=== PATIENT | female | born 1985 | race African-American/Black ===

== ENCOUNTER 2016-10-25 05:10 | Day surgery (SDC) | payer OTHER ==
[2016-10-23 11:34] VITALS: BMI 33.0
[~2016-10-25 05:10] MED LIST: ceFAZolin SODIUM 1 GM VIAL IVPB ONE
[2016-10-25] MEDS ORDERED: PROPOFOL 20 ML ONE ×3 (07:32)
[2016-10-25] MEDS ORDERED: MIDAZOLAM HCL 2 MG/2 ML SINGLE DOSE VIAL ONE (07:32)
[2016-10-25] MEDS ORDERED: ePHEDrine SULFATE 50 MG/1 ML AMPULE ONE (07:32)
[2016-10-25] MEDS ORDERED: SUCCINYLCHOLINE CHLORIDE 200 MG/10 ML VIAL ONE (07:32)
[2016-10-25] MEDS ORDERED: ROCURONIUM BROMIDE 50 MG/5 ML VIAL ONE (07:35)
--- NOTE | 2016-10-25 07:47 | HP ---
Past Medical History - Primary Care Physician PCP:: Nirav Weir - Admission Chief Complaint: 14 weeks, incomptent cervix History of Present Illness: 31 yo f g 4 p0020 with 2 previous second trimester spont admitted for cervical cerclage, rba discussed History Source: Patient Limitations to Obtaining History: No Limitations - Past Medical History Pulmonary: Yes: Pulmonary Embolus (on lovnox) ...: 3 ...Para: 0 ...Spon : 2 - Past Surgical History Hx Myomectomy: No Hx Transabdominal Cerclage: No - Smoking History Smoking history: Former smoker Have you smoked in the past 12 months: No Aproximately how many cigarettes per day: 0 If you are a former smoker, when did you quit?: stopped at age 21 - Alcohol/Substance Use Hx Alcohol Use: No History of Substance Use: reports: None - Social History Usual Living Arrangement: Yes: With Spouse 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 History of Recent Travel: No Home Medications - Allergies Allergies/Adverse Reactions: Allergies Allergy/AdvReac Type Severity Reaction Status Date / Time No Known Drug Allergies Allergy Severe Verified 10/25/16 07:17 Shellfish Allergy Hives Verified 10/25/16 07:17 - Home Medications Home Medications: Ambulatory Orders Enoxaparin [Lovenox -] 60 mg SQ DAILY 10/23/16 Vit/Iron Fumarate/FA [ Tablet] 1 each PO DAILY 10/23/16 Family Disease History - Family Disease History Family Disease History: Other: Father (unknown) Review of Systems - Review of Systems Constitutional: reports: No Symptoms Eyes: reports: No Symptoms HENT: reports: No Symptoms Neck: reports: No Symptoms Cardiovascular: reports: No Symptoms Respiratory: reports: No Symptoms Gastrointestinal: reports: No Symptoms Genitourinary: reports: No Symptoms Breasts: reports: No Symptoms Reported Musculoskeletal: reports: No Symptoms Integumentary: reports: No Symptoms Neurological: reports: No Symptoms Endocrine: reports: No Symptoms Hematology/Lymphatic: reports: No Symptoms Psychiatric: reports: No Symptoms 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 Vital Signs: Vital Signs Temperature 97.4 F L 10/25/16 07:16 Pulse Rate 73 10/25/16 07:16 Respiratory Rate 20 10/25/16 07:16 Blood Pressure 127/67 10/25/16 07:16 O2 Sat by Pulse Oximetry (%) 100 10/25/16 07:16 Constitutional: Yes: Well Nourished, No Distress, Calm Eyes: Yes: WNL, Conjunctiva Clear, EOM Intact HENT: Yes: WNL, Atraumatic, Normocephalic Neck: Yes: WNL, Supple, Trachea Midline Cardiovascular: Yes: WNL, Regular Rate and Rhythm Respiratory: Yes: WNL, Regular, CTA Bilaterally Gastrointestinal: Yes: WNL ...Rectal Exam: Yes: WNL Renal/: Yes: WNL Uterus: Yes: Enlarged (14 weeks) Breast(s): Yes: WNL Musculoskeletal: Yes: WNL Extremities: Yes: WNL Edema: No Integumentary: Yes: WNL Neurological: Yes: WNL, Alert, Oriented ...Motor Strength: WNL Psychiatric: Yes: WNL, Alert, Oriented Problem List - Problem (1) with 14 completed weeks gestation Code(s): Z3A.14 - 14 WEEKS GESTATION OF (2) Incompetent cervix Code(s): N88.3 - INCOMPETENCE OF CERVIX UTERI Assessment/Plan cercleage, rba discussed
[2016-10-25] MEDS ORDERED: ONDANSETRON 4 MG/2 ML VIAL IVPB PRN (08:54)
[2016-10-25] MEDS ORDERED: oxyCODONE HCL 5 MG TABLET PO PRN (08:54)
[2016-10-25] MEDS ORDERED: ELECTROLYTE-148 SOLN 1,000 ML IV SCH (09:00)
[2016-10-25] MEDS ORDERED: ACETAMINOPHEN 325 MG TABLET (FP) PO PRN (09:08)
[2016-10-25] MEDS ORDERED: LACTATED RINGERS SOLUTION 1,000 ML IV SCH (09:15)
[2016-10-25] MEDS ORDERED: ENOXAPARIN NA (PORCINE) 60 MG/0.6 ML DISP.SYRIN SQ SCH (10:00)
[2016-10-25] MEDS ORDERED: PRENATAL VITAMINS W/ FOLIC ACID TABLET (FP) PO SCH (10:00)
[2016-10-25 10:06] VITALS: TEMP 98.3
[2016-10-25 10:23] VITALS: PULSE 76
[2016-10-25 12:02] VITALS: BP 97/58
--- NOTE | 2016-12-25 07:03 | OP ---
DATE OF OPERATION: 10/25/2016 PREOPERATIVE DIAGNOSIS: 14 weeks, incompetent cervix. POSTOPERATIVE DIAGNOSIS: 14 weeks, incompetent cervix. PROCEDURE: Cervical cerclage. SURGEON: Nirav Weir MD ESTIMATED BLOOD LOSS: Minimal. DESCRIPTION OF PROCEDURE: The patient was taken to the operating room, and under adequate anesthesia, examination of external genitalia was normal. Vagina was normal, no lesion or discharge. Cervix was closed, and no membrane was seen. Then, the cervix was grasped with a 2-ring forceps, and then, cerclage was placed at 12, 9, 6, and 3 o'clock and then tied posteriorly, and no active bleeding was seen. Visualization of cerclage appeared to be adequate cervical length, and no other abnormalities were seen. Patient tolerated the procedure well, left the OR in good condition. Yaneth [id number]
== END 2016-10-25 11:30 | disposition home or self-care (01) ==
LOC: JASU-SURG 05:10
PROVIDERS: ATTEND Obstetrics & Gynecology
PROC: 0UVC7ZZ Restriction of Cervix, Via Natural or Artificial Opening (ICD-10-PCS; principal; 2016-10-25 08:00)
DX: O34.32 Maternal care for cervical incompetence, second trimester (principal)
CPT/HCPCS: 94760

== ENCOUNTER 2017-04-14 06:12 | Inpatient (IN) | payer OTHER ==
[2017-04-14 07:17] VITALS: BMI 36.5
[2017-04-14] MEDS ORDERED: AMPICILLIN - 2 GM in SODIUM CHLORIDE 100 ML IVPB ONE (07:30)
[2017-04-14] MEDS ORDERED: DEXTROSE 5%-LACTATED RINGERS 1,000 ML IV SCH (07:30)
[2017-04-14 08:09] LABS: BASOPHIL 0.8 % (0-2.0); EOSINOPHIL 1.7 % (0-4.5); MCH 26.2 pg (25.7-33.7); MCHC 32.9 g/dl (32.0-36.0); MEAN CELL VOLUME 79.8 fl (80-96); MEAN PLT VOLUME 9.1 fl (7.5-11.1); NEUTROPHILS 58.1 % (42.8-82.8); PLATELET COUNT 157 K/MM3 (134-434); RDW 16.3 % (11.6-15.6); WHITE BLOOD COUNT 5.3 K/mm3 (4.0-10.0)
[2017-04-14 08:21] LABS: INR 1.04 (0.82-1.09); PROTHROMBIN TIME (PATIENT) 11.5 SEC (9.98-11.88)
[2017-04-14 08:24] LABS: ACTIVATED PTT 26.2 SECONDS (26.9-34.4)
[2017-04-14 08:44] LABS: ANION GAP 12 (8-16); CO2 22 mmol/L (21-32); CREATININE 0.7 mg/dL (0.55-1.02); GLUCOSE,RANDOM 95 mg/dL (74-106)
[2017-04-14 09:23] LABS: HIV 1 & 2 AB NEGATIVE; HIV 1 AGp24 NEGATIVE
--- NOTE | 2017-04-14 09:34 | HP ---
Past Medical History - Primary Care Physician PCP:: Nriav Weir - Admission Chief Complaint: 31yo P 1301 @ 38.5 with LOF since 3am, + FM, occasional ctx, no VB History of Present Illness: 1. H/o x3 2nd trimester losses - s/p Cerclage 2. 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 GBS + for Ampicillin now 4. Sickle cell trait, tested negative History Source: Patient Limitations to Obtaining History: No Limitations - Past Medical History Pulmonary: Yes: Pulmonary Embolus (on lovnox), Other (DVT) Reproductive: Yes: Other (3 Spontaneous mid trimester losses) ...: 5 ...Para: 1 ...Term: 1 ...: 0 ...Spon : 3 ...Induced : 0 ...Multiple Gestation: 0 ...LMP: 07/18/16 ... Weeks Gestation by Dates: 38.5 ...EDC by Dates: 04/23/17 Heme/Onc: Yes: Other (Sicle cell trait). 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 Travel: No Home Medications - Allergies Allergies/Adverse Reactions: Allergies Allergy/AdvReac Type Severity Reaction Status Date / Time No Known Drug Allergies Allergy Severe Verified 04/14/17 07:00 Shellfish Allergy Hives Verified 04/14/17 07:00 - Home Medications Home Medications: Ambulatory Orders Vit/Iron Fumarate/FA [ Tablet] 1 each PO DAILY 10/23/16 Heparin Sod,Porcine/0.9 % NaCl [Heparin 10,000 Unit/1,000Ml-Ns] 10,000 unit SQ BID 04/14/17 Family Disease History - Family Disease History Family Disease History: Other: Father (unknown) Review of Systems - Review of Systems Constitutional: reports: No Symptoms Eyes: reports: No Symptoms HENT: reports: No Symptoms Neck: reports: No Symptoms Cardiovascular: reports: No Symptoms Respiratory: reports: No Symptoms Gastrointestinal: reports: No Symptoms Genitourinary: reports: No Symptoms Breasts: reports: No Symptoms Reported Musculoskeletal: reports: No Symptoms Integumentary: reports: No Symptoms Neurological: reports: No Symptoms Endocrine: reports: No Symptoms Hematology/Lymphatic: reports: No Symptoms Psychiatric: reports: No Symptoms Pain Intensity: 0 Physical Exam - Maternity Vital Signs: Vital Signs Temperature 98.1 F 04/14/17 08:00 Pulse Rate 70 04/14/17 09:00 Respiratory Rate 18 04/14/17 09:00 Blood Pressure 115/62 04/14/17 09:00 O2 Sat by Pulse Oximetry (%) Constitutional: Yes: Well Nourished HENT: Yes: WNL Neck: Yes: WNL Cardiovascular: Yes: WNL Lungs: Clear to auscultation Breast(s): Yes: WNL - Abdominal Exam/OB Fundal Height: 38 Number of Fetuses: Single Presentation: Vertex Contractions: Yes Regularity: Irregular Intensity: Mild Monitor Mode: External Heart Rate (range): 140 Heart Rate Location: Midline Category: I Accelerations: Uniform Decelerations: None - Vaginal Exam/OB Vaginal Bleediing: No Dilatation (cm): 1-2 Effacement (%): 90 Amniotic Membrane Status: Ruptured (Palpable cerlage string in the cervix) Nitrazine Test: Positive Amniotic Fluid: Yes: Clear Presentation: Vertex/Position Station: -3 - Physical Exam Musculoskeletal: Yes: WNL Extremities: Yes: WNL Integumentary: Yes: WNL ...Motor Strength: WNL Psychiatric: Yes: WNL - Labs Lab Results: CBC, BMP 04/14/17 07:50 04/14/17 07:50 Assessment/Plan 31 yo P1 @ 38.5 wks with PROM, currently not in labor Admit to L&D Send labs, start IVF Desires pain management for cerclage removal Case d/w anesthesia, will be 14hr post last dose of Heparin @ 12pm Will obtain Epidural, than remove cerclage Than will start Pitocin for IOL Now start Ampicillin for GBS prophylaxis MF status reassuring
[2017-04-14] MEDS ORDERED: TUBERCULIN PPD 5 TU/0.1ML SYRINGE (IN PATIENT USE ONLY) ID ONE (10:00)
[2017-04-14] MEDS: AMPICILLIN - 1 GM in SODIUM CHLORIDE 100 ML IVPB SCH ×3 (11:45→20:46)
[2017-04-14] MEDS ORDERED: FENTANYL/BUPIVACAINE/NS/PF - PCEA - 50 ML DISP.SYRIN EP SCH (13:30)
[2017-04-14] MEDS ORDERED: ELECTROLYTE-148 SOLN 1,000 ML IV SCH (15:45)
[2017-04-14] MEDS ORDERED: OXYTOCIN 15 UNITS/ LR 250 ML 250 ML IVPB SCH (15:45)
[2017-04-14] MEDS ORDERED: BISACODYL 10 MG SUPP.RECT RC PRN (19:57)
[2017-04-14] MEDS ORDERED: METHYLERGONOVINE MALEATE 0.2 MG/1 ML AMP IM PRN (19:57)
[2017-04-14] MEDS ORDERED: BENZOCAINE 28 GM HEMORRHOIDAL OINTMENT TP PRN (19:57)
[2017-04-14] MEDS ORDERED: BENZOCAINE 20% 57 GM BOTTLE TP PRN (19:57)
[2017-04-14] MEDS ORDERED: WITCH HAZEL 50% (TUCKS) 40 PAD/JAR PAD TP PRN (19:57)
[2017-04-14] MEDS: D5W-LR W/ 20 UNITS OXYTOCIN 1,000 ML IV SCH (20:00)
--- NOTE | 2017-04-14 20:10 | PN ---
Delivery - Delivery Vaginal Delivery: Spontaneous Type of Anesthesia: Epidural Episiotomy/Laceration: Midline, 1st degree EBL (cc): 400 Delivery, Single - Stages of Labor Date 1st Stage Initiatied: 04/14/17 Time 1st Stage Initiated: 12:00 Date 2nd Stage Initiated: 04/14/17 Time 2nd Stage Initiated: 19:15 Date of Delivery: 04/14/17 Time of Delivery: 19:31 Date Placenta Delivered: 04/14/17 Time Placenta Delivered: 19:40 Placenta: Yes: Spontaneous - Condition of Infant Acquisition Analyst/Aquatics Specialist Present: No Infant Gender: Male Position: Left, OA (16.5hr.) - 1 Minute Total Score: 9 5 Minutes Total Score: 9 - [place] Feeding Plan Initial Plan: Elected not to breastfeed exclusively throughout hospitalization Benefits of Exclusively reinforced: Yes Remarks - Remarks Remarks: Cord around the neck once, reduced Uncomplicated head and shoulders delivery after placenta delivered hemorrhage noted, treated with Methergine 0.2mg x 1 given Bleeding stopped
[2017-04-14] MEDS: FERROUS SO4 325 MG TABLET (FP) PO SCH (23:37)
[2017-04-15] MEDS: D5W-LR W/ 20 UNITS OXYTOCIN 1,000 ML IV SCH
[2017-04-15 06:53] LABS: BASOPHIL 0.6 % (0-2.0); EOSINOPHIL 0.7 % (0-4.5); MCH 26.6 pg (25.7-33.7); MCHC 33.3 g/dl (32.0-36.0); MEAN CELL VOLUME 79.8 fl (80-96); MEAN PLT VOLUME 9.5 fl (7.5-11.1); NEUTROPHILS 70.7 % (42.8-82.8); PLATELET COUNT 151 K/MM3 (134-434); RDW 16.3 % (11.6-15.6); WHITE BLOOD COUNT 8.9 K/mm3 (4.0-10.0)
[2017-04-15] MEDS: IBUPROFEN 600 MG TABLET (FP) PO PRN ×2 (08:04→13:13)
[2017-04-15] MEDS: ACETAMINOPHEN 325 MG TABLET (FP) PO PRN ×2 (08:06→13:22)
--- NOTE | 2017-04-15 08:24 | PN ---
Post Progress Note - Subjective Subjective: 31 yo P2 now s/p Post Day: 1 Type of Delivery: Vital Signs: Vital Signs Temperature 97.7 F 04/15/17 06:00 Pulse Rate 90 04/15/17 06:00 Respiratory Rate 18 04/15/17 06:00 Blood Pressure 121/75 04/15/17 06:00 O2 Sat by Pulse Oximetry (%) 100 04/14/17 21:00 Breast Exam: Yes: Soft Uterus: Yes: Fundus Firm, Fundus @ umbilicus Abdomen/GI: Yes: Abdomen soft, Tolerating PO Lochia, amount: Small Extremities: Yes: Calves non-tender Perineum: Yes: Laceration Activity: Ambulating - Labs Labs: CBC WBC 8.9 K/mm3 (4.0-10.0) D 04/15/17 05:45 RBC 4.07 M/mm3 (3.60-5.2) 04/15/17 05:45 Hgb 10.8 GM/dL (10.7-15.3) 04/15/17 05:45 Hct 32.5 % (32.4-45.2) 04/15/17 05:45 MCV 79.8 fl (80-96) L 04/15/17 05:45 MCH 26.6 pg (25.7-33.7) 04/15/17 05:45 MCHC 33.3 g/dl (32.0-36.0) 04/15/17 05:45 RDW 16.3 % (11.6-15.6) H 04/15/17 05:45 Plt Count 151 K/MM3 (134-434) 04/15/17 05:45 MPV 9.5 fl (7.5-11.1) 04/15/17 05:45 Neutrophils % 70.7 % (42.8-82.8) D 04/15/17 05:45 Lymphocytes % 17.7 % (8-40) D 04/15/17 05:45 Monocytes % 10.3 % (3.8-10.2) H 04/15/17 05:45 Eosinophils % 0.7 % (0-4.5) 04/15/17 05:45 Basophils % 0.6 % (0-2.0) 04/15/17 05:45 Assessment/Plan 31 yo P2 s/p She is doing well VSS, H/H stable Continue routine PP care Restart Lovenox for DVT profilaxis [place] ambulation Baby for circumcision, consent signed, baby is not cleared by peds Blood type B+ no need for RhoGam
[2017-04-15] MEDS: FERROUS SO4 325 MG TABLET (FP) PO SCH ×2 (09:49→21:24)
[2017-04-15] MEDS: PRENATAL VITAMINS W/ FOLIC ACID TABLET (FP) PO SCH (09:50)
[2017-04-15] MEDS: ENOXAPARIN NA (PORCINE) 40 MG/0.4 ML DISP.SYRIN SQ SCH (09:50)
[2017-04-15] MEDS ORDERED: FLU VACC QS2017-18 36MOS UP/PF 60 MCG/0.5 ML SYRINGE IM ONE (10:00)
[2017-04-15] MEDS ORDERED: DIPHTH,PERTUSS(ACELL),TET 0.5 ML DISP.SYRIN IM ONE (10:00)
[2017-04-15] MEDS ORDERED: SENNOSIDES/DOCUSATE COMBO (SENNA PLUS) TABLET (UD) PO PRN (22:00)
[2017-04-15 22:03] VITALS: PULSE 79
--- NOTE | 2017-04-16 09:01 | DS ---
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 Signs: Vital Signs Temperature 97.8 F 04/15/17 22:01 Pulse Rate 79 04/15/17 22:01 Respiratory Rate 20 04/15/17 22:01 Blood Pressure 122/72 04/15/17 22:01 O2 Sat by Pulse Oximetry (%) 100 04/14/17 21:00 Constitutional: Yes: Well Nourished, No Distress, Calm Eyes: Yes: WNL, Conjunctiva Clear, EOM Intact HENT: Yes: WNL, Atraumatic, Normocephalic Neck: Yes: WNL, Supple, Trachea Midline Cardiovascular: Yes: WNL, Regular Rate and Rhythm Respiratory: Yes: WNL, Regular, CTA Bilaterally Gastrointestinal: Yes: WNL, Normal Bowel Sounds, Soft ...Rectal Exam: Yes: Deferred Renal/: Yes: WNL Pelvis: Yes: WNL External Genitalia: Yes: Normal Internal Exam Deferred: Yes ....Post : Yes: Uterus firm, Uterus non-tender Breast(s): Yes: WNL Musculoskeletal: Yes: WNL Extremities: Yes: WNL Edema: No Integumentary: Yes: WNL Neurological: Yes: WNL, Alert, Oriented ...Motor Strength: WNL Psychiatric: Yes: WNL, Alert, Oriented Labs: CBC, BMP 04/15/17 05:45 04/14/17 07:50 Delivery - Delivery Vaginal Delivery: Spontaneous Type of Anesthesia: Epidural Episiotomy/Laceration: Midline, 1st degree EBL (cc): 400 Delivery, Single - Stages of Labor Date 1st Stage Initiatied: 04/14/17 Time 1st Stage Initiated: 12:00 Date 2nd Stage Initiated: 04/14/17 Time 2nd Stage Initiated: 19:15 Date of Delivery: 04/14/17 Time of Delivery: 19:31 Time Placenta Delivered: 19:40 Placenta: Yes: Spontaneous - 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 Pt was instructed to continue LOVENOX for 6 weeks Discharge Summary Reason For Visit: LABOR - Home Medications Comprehensive Discharge Medication List: Ambulatory Orders Vit/Iron Fumarate/FA [ Tablet] 1 each PO DAILY 10/23/16 Heparin Sod,Porcine/0.9 % NaCl [Heparin 10,000 Unit/1,000Ml-Ns] 10,000 unit SQ BID 04/14/17
[2017-04-16 09:31] VITALS: BP 109/67; TEMP 98.2
[2017-04-16] MEDS: ENOXAPARIN NA (PORCINE) 40 MG/0.4 ML DISP.SYRIN SQ SCH (10:07)
[2017-04-16] MEDS: FERROUS SO4 325 MG TABLET (FP) PO SCH (10:07)
[2017-04-16] MEDS: PRENATAL VITAMINS W/ FOLIC ACID TABLET (FP) PO SCH (10:07)
[2017-04-16] MEDS: IBUPROFEN 600 MG TABLET (FP) PO PRN (13:25)
[2017-04-16] MEDS: ACETAMINOPHEN 325 MG TABLET (FP) PO PRN (13:26)
== END 2017-04-16 14:40 | disposition home or self-care (01) | DRG 775 ==
LOC: JLDR 06:12 → J3W 21:30
PROVIDERS: ADMIT Obstetrics & Gynecology; ATTEND Obstetrics & Gynecology
PROC: 0HQ9XZZ Repair Perineum Skin, External Approach (ICD-10-PCS; principal; 2017-04-14)
PROC: 10E0XZZ Delivery of Products of Conception, External Approach (ICD-10-PCS; 2017-04-14)
DX: O69.81X0 Labor and delivery complicated by cord around neck, without compression, not applicable or unspecified (principal); O70.0 First degree perineal laceration during delivery; O99.824 Streptococcus B carrier state complicating childbirth; O99.02 Anemia complicating childbirth; D57.3 Sickle-cell trait; Z3A.38 38 weeks gestation of pregnancy; Z37.0 Single live birth; Z86.718 Personal history of other venous thrombosis and embolism
CPT/HCPCS: 36415; 59409; 80048; 85025; 85610; 85730; 86593; 86850; 86900; 86901; 87389; 90686; 90715; G0008

== ENCOUNTER 2018-03-31 16:49 | Emergency (ER) | payer OTHER ==
--- NOTE | 2018-03-31 17:03 | PDOC ---
Rapid Medical Evaluation Chief Complaint: Pain, Acute Time Seen by Provider: 03/31/18 17:01 Medical Evaluation: Allergies Allergy/AdvReac Type Severity Reaction Status Date / Time No Known Drug Allergies Allergy Severe Verified 03/31/18 17:00 Shellfish Allergy Hives Verified 03/31/18 17:00 03/31/18 17:01 I have performed a brief in person evaluation of this patient. The patient presents with a CC of: left leg pain HPI: Pt is a 32 Yo female with a previous hx of DVT in the left leg with PE and she states she has had left leg pain similar to when she had her DVT one year ago earlier this morning. Denies recent travel. Denies being on anticoagulants. PE: Skin: Clear Heart: RRR Lungs: Clear MS: Moves all extremities without difficulty. Left LE equal in size to the RLE. Calf supple, non tender. Neuro: Appropriate affect, smile symmetric, negative [place] Psych: appropriate affect I have ordered: US of the LLE The patient will proceed to the ED for further evaluation. Discharge Disposition - Referrals Referrals: Geoffrey Hamilton MD [Primary Care Provider] - - Patient Instructions - Post Discharge Activity
[2018-03-31 17:05] VITALS: BP 126/42; PULSE 74; TEMP 98.2; BMI 34.9
--- NOTE | 2018-03-31 18:59 | PDOC ---
History of Present Illness - General Chief Complaint: Pain, Acute Stated Complaint: LEFT SIDE LEG PAIN Time Seen by Provider: 03/31/18 17:01 History Source: Patient Exam Limitations: No Limitations - History of Present Illness Initial Comments: 03/31/18 18:57 32-year-old female presents to ED with complaints of left leg/calf pain for the past day worsening in severity with movement and ambulation. Patient states history of DVT approximately 2-3 years ago where she was on Coumadin and Lovenox. Patient states then was where she miscarried twice and on the third she was placed back on anticoagulation therapy through her and after she delivered her son was taken off of it about a year ago. Patient shortness of breath, weakness of the lower extremity, skin discoloration , or change in temperature Timing/Duration: 24 hours Severity: mild Associated Symptoms: reports: denies symptoms Past History - Travel Traveled outside of the country in the last 30 days: No - Past Medical History Allergies/Adverse Reactions: Allergies Allergy/AdvReac Type Severity Reaction Status Date / Time No Known Drug Allergies Allergy Severe Verified 03/31/18 17:00 Shellfish Allergy Hives Verified 03/31/18 17:00 Home Medications: Ambulatory Orders Vit/Iron Fum/Folic AC [ Tablet] 1 each PO DAILY 10/23/16 Heparin Sod,Porcine/0.9 % NaCl [Heparin 10,000 Unit/1,000Ml-Ns] 10,000 unit SQ BID 04/14/17 Asthma: No Cancer: No Cardiac Disorders: No COPD: No Diabetes: No HTN: No Seizures: No Thyroid Disease: No Other medical history: LLe DVT - Immunization History Immunization Up to Date: Yes - Suicide/Smoking/Psychosocial Hx Smoking Status: No Smoking History: Never smoked Have you smoked in the past 12 months: No Number of Cigarettes Smoked Daily: 0 If you are a former smoker, when did you quit?: stopped at age 21 Hx Alcohol Use: Yes Drug/Substance Use Hx: No Substance Use Type: None Hx Substance Use Treatment: No Patient Lives Alone: No Lives with/in: spouse/SO Review of Systems - Review of Systems Able to Perform ROS?: Yes Is the patient limited Finnish proficient: No Constitutional: No: Symptoms Reported HEENTM: No: Symptoms Reported Respiratory: No: Symptoms reported Cardiac (ROS): No: Symptoms Reported ABD/GI: No: Symptoms Reported : No: Symptoms Reported Musculoskeletal: Yes: Muscle Pain Integumentary: No: Symptoms Reported Neurological: No: Symptoms reported Endocrine: No: Symptoms Reported *Physical Exam - Vital Signs Last Vital Signs Temp Pulse Resp BP Pulse Ox 98.2 F 74 16 126/42 100 03/31/18 17:01 03/31/18 17:01 03/31/18 17:01 03/31/18 17:01 03/31/18 17:01 - Physical Exam General Appearance: Yes: Nourished, Appropriately Dressed. No: Apparent Distress Respiratory/Chest: positive: Lungs Clear, Normal Breath Sounds. negative: Respiratory Distress, Accessory Muscle Use Cardiovascular: positive: Regular Rhythm, Regular Rate. negative: Murmur Vascular Pulses: Doralis-Pedis (L): 2+ Extremity: positive: Pedal Edema (trace), Calf Tenderness (left -negative Homans ) Integumentary: positive: Normal Color, Warm, Moist Neurologic: positive: Motor Strength 5/5 Medical Decision Making - Medical Decision Making 03/31/18 18:59 Patient will left calf pain. Patient with history of left lower extremity DVT approximately 3 years ago. Patient ordered for duplex of the lower extremity. *DC/Admit/Observation/Transfer - Referrals Referrals: Geoffrey Hamilton MD [Primary Care Provider] - - Patient Instructions - Post Discharge Activity
--- NOTE | 2018-03-31 19:06 | PDOC ---
*Physical Exam - Vital Signs Last Vital Signs Temp Pulse Resp BP Pulse Ox 98.2 F 74 16 126/42 100 03/31/18 17:01 03/31/18 17:01 03/31/18 17:01 03/31/18 17:01 03/31/18 17:01 - Physical Exam General Appearance: Yes: Nourished, Appropriately Dressed. No: Apparent Distress (AAOx3 sitting comfortably in chair) Vascular Pulses: Dorsalis-Pedis (R): 2+, Doralis-Pedis (L): 2+ Extremity: positive: Normal Capillary Refill, Normal Inspection, Normal Range of Motion. negative: Swelling, Calf Tenderness (left) Integumentary: positive: Normal Color, Dry, Warm Neurologic: positive: Fully Oriented, Alert, Normal Mood/Affect, Normal Response Medical Decision Making - Medical Decision Making 03/31/18 19:05 Pt signed out to me by Mary Regan NP. Pt pending lower extremity US read. 03/31/18 20:08 Lower extremity read is negative for DVT. No pain on reassessment. Recommend pt to follow-up in one week for repeat scan per radiology report. DC home. -I discussed the physical exam findings, ancillary test results and final diagnoses with the patient. I answered all of the patient's questions. The patient was satisfied with the care received and felt comfortable with the discharge plan and treatment plan. The Patient agrees to follow up with the primary care physician/specialist within 24-72 hours. Return precautions were given. *DC/Admit/Observation/Transfer Diagnosis at time of Disposition: Leg pain Qualifiers: Laterality: left Qualified Code(s): M79.605 - Pain in left leg - Discharge Dispostion Disposition: HOME Condition at time of disposition: Stable Decision to Admit order: No - Referrals Referrals: Geoffrey Hamilton MD [Primary Care Provider] - - Patient Instructions Printed Discharge Instructions: DI for Leg Pain Additional Instructions: Your DVT study was negative today, meaning you do not have a DVT currently It is recommended that you return to the ED in one week for repeat ultrasound to the leg to completely rule out DVT You may take Ibuprofen 600mg every 6 hours as needed for pain Keep the leg elevated when resting. Warm compresses may also help. Follow up with your primary care doctor in 1-2 days Return to the ED for worsening pain, fevers, redness to the calf, or if you have any changes in your symptoms. - Post Discharge Activity Forms/Work/School Notes: Back to Work
== END 2018-03-31 20:41 | disposition home or self-care (01) ==
LOC: JER 16:49
DX: M79.662 Pain in left lower leg (principal); Z86.718 Personal history of other venous thrombosis and embolism; Z86.711 Personal history of pulmonary embolism
CPT/HCPCS: 93971-TC; 99282-25

== ENCOUNTER 2020-06-16 15:34 | Emergency (ER) | payer OTHER ==
[2020-06-16 16:13] VITALS: BP 132/85; PULSE 94; TEMP 97.9; BMI 33.5
[2020-06-16] MEDS ORDERED: KETOROLAC TROMETHAMINE 60 MG/2 ML VIAL IM ONE (16:51)
[2020-06-16] MEDS ORDERED: KETOROLAC TROMETHAMINE 60 MG/2 ML VIAL ONE (16:59)
== END 2020-06-16 18:23 | disposition home or self-care (01) ==
LOC: JER 15:34
PROC: 3E0233Z Introduction of Anti-inflammatory into Muscle, Percutaneous Approach (ICD-10-PCS; principal; 2020-06-16)
DX: M54.40 Lumbago with sciatica, unspecified side (principal)
CPT/HCPCS: 72100-TC-FY; 93971-TC; 99284-25

== ENCOUNTER 2021-10-20 20:21 | Emergency (ER) | payer OTHER ==
[2021-10-20 20:29] VITALS: BP 118/81; PULSE 81; TEMP 98.3; BMI 34.9
== END 2021-10-20 21:38 | disposition home or self-care (01) ==
LOC: JERFT 20:21
DX: R51.9 Headache, unspecified (principal)
CPT/HCPCS: 99281-25

== ENCOUNTER 2021-11-09 17:12 | Emergency (ER) | payer OTHER ==
[2021-11-09 17:27] VITALS: BP 121/86; PULSE 74; TEMP 98.2; BMI 35.5
[2021-11-09] MEDS ORDERED: KETOROLAC TROMETHAMINE 30 MG/1 ML VIAL IM ONE (18:57)
[2021-11-09] MEDS ORDERED: KETOROLAC TROMETHAMINE 30 MG/1 ML VIAL ONE (19:07)
== END 2021-11-09 19:16 | disposition home or self-care (01) ==
LOC: JERFT 17:12
PROC: 3E023GC Introduction of Other Therapeutic Substance into Muscle, Percutaneous Approach (ICD-10-PCS; principal; 2021-11-09)
DX: M54.41 Lumbago with sciatica, right side (principal)
CPT/HCPCS: 84703; 99284-25

== ENCOUNTER 2022-04-01 18:14 | Emergency (ER) | payer OTHER ==
[2022-04-01 18:34] VITALS: BP 127/83; PULSE 77; RESP 18; TEMP 98; BMI 35.6
[2022-04-01] MEDS ORDERED: ONDANSETRON 4 MG/2 ML VIAL IVPUSH ONE (19:43)
[2022-04-01] MEDS ORDERED: ONDANSETRON *ODT* 4 MG TABLET SL ONE (19:46)
[2022-04-01] MEDS ORDERED: ONDANSETRON *ODT* 4 MG TABLET ONE (20:52)
== END 2022-04-01 21:52 | disposition home or self-care (01) ==
LOC: JER 18:14
DX: R11.0 Nausea (principal); R42 Dizziness and giddiness; R05.1 Acute cough
CPT/HCPCS: 0241U-QW; 84703; 99283-25; Q0162

== ENCOUNTER 2023-11-25 04:07 | Day surgery (SDC) | payer OTHER ==
[2023-11-20 13:08] VITALS: BMI 31.3
[2023-11-25 06:29] VITALS: RESP 18
[2023-11-25] MEDS ORDERED: oxyCODONE HCL 5 MG TABLET PO PRN ×2 (07:15→07:53)
[2023-11-25] MEDS ORDERED: ONDANSETRON 4 MG/2 ML VIAL IVPUSH PRN ×2 (07:15→07:53)
[2023-11-25] MEDS ORDERED: LACTATED RINGERS SOLUTION 1,000 ML IV SCH (07:15)
[2023-11-25] MEDS ORDERED: FENTANYL CITRATE/PF 50 MCG/ML VIAL ONE ×5 (07:34→09:17)
[2023-11-25] MEDS ORDERED: LIDOCAINE HCL/PF 2% SDV 5ML VIAL ONE (07:34)
[2023-11-25] MEDS ORDERED: KETOROLAC TROMETHAMINE 30 MG/1 ML VIAL ONE (07:34)
[2023-11-25] MEDS ORDERED: ONDANSETRON 4 MG/2 ML VIAL ONE (07:34)
[2023-11-25] MEDS ORDERED: ceFAZolin SODIUM 1 GM VIAL ONE (07:34)
[2023-11-25] MEDS ORDERED: DEXAMETHASONE SOD PHOSPHATE 4 MG/1 ML VIAL ONE (07:34)
[2023-11-25] MEDS ORDERED: PROPOFOL 40 ML ONE (07:34)
[2023-11-25] MEDS ORDERED: MIDAZOLAM HCL 2 MG/2 ML SINGLE DOSE VIAL ONE (07:35)
[2023-11-25] MEDS ORDERED: SUCCINYLCHOLINE CHLORIDE 200 MG/10 ML SYRINGE ONE (07:35)
[2023-11-25] MEDS ORDERED: ACETAMINOPHEN INJECTION 100 ML IVPB ONE (07:42)
[2023-11-25] MEDS ORDERED: IBUPROFEN 600 MG TABLET (FP) PO PRN (07:53)
[2023-11-25] MEDS ORDERED: IBUPROFEN 800 MG/8 ML IJ IVPB PRN (07:53)
[2023-11-25] MEDS ORDERED: ELECTROLYTE-148 SOLN 1,000 ML IV SCH (08:00)
[2023-11-25] MEDS: SILVER NITRATE 75% APPLIC STCK 1 PKT EACH TP ONE (08:55)
[2023-11-25 10:22] VITALS: TEMP 97.8
[2023-11-25 11:32] VITALS: BP 109/70; PULSE 68
== END 2023-11-25 13:26 | disposition home or self-care (01) ==
LOC: JASU-SURG 04:07
PROVIDERS: ATTEND Obstetrics & Gynecology
PROC: 0U5B8ZZ Destruction of Endometrium, Via Natural or Artificial Opening Endoscopic (ICD-10-PCS; principal; 2023-11-25 07:30)
PROC: 0UPD8HZ Removal of Contraceptive Device from Uterus and Cervix, Via Natural or Artificial Opening Endoscopic (ICD-10-PCS; 2023-11-25 07:30)
DX: N93.9 Abnormal uterine and vaginal bleeding, unspecified (principal)
CPT/HCPCS: 81025; 86850; 86900; 86901; 88305-TC; 94760; J0131

== ENCOUNTER 2024-02-03 05:10 | Day surgery (SDC) | payer OTHER ==
[2024-02-02 07:16] VITALS: BMI 31.1
[2024-02-03] MEDS ORDERED: metroNIDAZOLE 0.75% VAGINAL GEL 70 GM TUBE ONE (10:03)
[2024-02-03] MEDS ORDERED: HYDROmorphone HCl 2 MG/ML VIAL ONE ×2 (12:37→13:54)
[2024-02-03] MEDS ORDERED: MIDAZOLAM HCL 2 MG/2 ML SINGLE DOSE VIAL ONE (12:37)
[2024-02-03] MEDS ORDERED: PROPOFOL 40 ML ONE (12:41)
[2024-02-03] MEDS ORDERED: ROCURONIUM BROMIDE 50 MG/5 ML SYRINGE ONE (12:43)
[2024-02-03] MEDS ORDERED: SUCCINYLCHOLINE CHLORIDE 200 MG/10 ML SYRINGE ONE (12:44)
[2024-02-03] MEDS ORDERED: ceFAZolin SODIUM 1 GM VIAL ONE (12:49)
[2024-02-03] MEDS: ceFAZolin SODIUM 1 GM VIAL IVPB ONE (12:51)
[2024-02-03] MEDS ORDERED: ONDANSETRON 4 MG/2 ML VIAL ONE ×2 (13:01→13:57)
[2024-02-03] MEDS ORDERED: DEXAMETHASONE SOD PHOSPHATE 4 MG/1 ML VIAL ONE ×2 (13:01→13:57)
[2024-02-03] MEDS ORDERED: SUGAMMADEX SODIUM 200 MG/2 ML VIAL ONE (13:48)
[2024-02-03] MEDS ORDERED: BACITRACIN ZINC 15 GM TUBE TOPICAL OINTMENT ONE (14:00)
[2024-02-03] MEDS: BACITRACIN ZINC 15 GM TUBE TOPICAL OINTMENT TP ONE (14:13)
[2024-02-03] MEDS ORDERED: HYDROmorphone *PCA* 10MG/50ML DISP.SYRIN ONE (14:45)
[2024-02-03] MEDS: HYDROmorphone *PCA* 10MG/50ML DISP.SYRIN PCA SCH (14:50)
[2024-02-03] MEDS ORDERED: IBUPROFEN 600 MG TABLET (FP) PO PRN (14:55)
[2024-02-03] MEDS ORDERED: ONDANSETRON 4 MG/2 ML VIAL IVPUSH PRN (14:55)
[2024-02-03] MEDS ORDERED: oxyCODONE HCL 5 MG TABLET PO PRN (14:55)
[2024-02-03] MEDS: ELECTROLYTE-148 SOLN 1,000 ML IV SCH (15:09)
[2024-02-03] MEDS ORDERED: IBUPROFEN 800 MG/8 ML IJ IVPB ONE (15:32)
[2024-02-03] MEDS: IBUPROFEN 800 MG/8 ML IJ IVPB PRN (15:37)
[2024-02-03] MEDS ORDERED: PATIENT'S OWN MEDICATION (NON-FORMULARY) (Naproxen Sodium [Aleve] 220 MG Tablet) PO SCH (23:15)
[2024-02-04] MEDS: ACETAMINOPHEN 325 MG TABLET (FP) PO SCH (06:37)
[2024-02-04 09:03] LABS: BASO % 0.2 % (0-2.0); EOS % 0.1 % (0-4.5); HEMATOCRIT 35.6 % (32.4-45.2); HEMOGLOBIN 11.7 GM/dL (10.7-15.3); LYMPH % 13.6 % (8-40); MCH 28.5 pg (25.7-33.7); MCHC 32.9 g/dl (32.0-36.0); MEAN CELL VOLUME 86.5 fl (80-96); MEAN PLT VOLUME 9.5 fl (7.5-11.1); MONO % 7.4 % (3.8-10.2); NEUT % 78.7 % (42.8-82.8); PLATELET COUNT 213 10^3/uL (134-434); RBC 4.12 M/mm3 (3.60-5.2); RDW 15.1 % (11.6-15.6)
[2024-02-04] MEDS: ENOXAPARIN NA (PORCINE) 40 MG/0.4 ML DISP.SYRIN SQ SCH (09:31)
[2024-02-04] MEDS ORDERED: BISACODYL 10 MG SUPP.RECT PR PRN (13:57)
[2024-02-04 14:59] VITALS: BP 110/7; PULSE 67; RESP 18; TEMP 98.1
[2024-02-04] MEDS ORDERED: oxyCODONE HCL 5 MG TABLET PO PRN (16:19)
== END 2024-02-04 16:24 | disposition home or self-care (01) ==
LOC: JASU-SURG 05:10 → JASUSAT 05:10 → J8W 16:55 → JASUSAT 02-04 16:24
PROVIDERS: ATTEND Obstetrics & Gynecology
PROC: 0UB77ZZ Excision of Bilateral Fallopian Tubes, Via Natural or Artificial Opening (ICD-10-PCS; 2024-02-03)
PROC: 0HB9XZZ Excision of Perineum Skin, External Approach (ICD-10-PCS; 2024-02-03)
PROC: 0UT97ZZ Resection of Uterus, Via Natural or Artificial Opening (ICD-10-PCS; principal; 2024-02-03 10:00)
DX: N92.0 Excessive and frequent menstruation with regular cycle (principal); D25.1 Intramural leiomyoma of uterus; N80.03 Adenomyosis of the uterus; N81.4 Uterovaginal prolapse, unspecified; P00.89 Newborn affected by other maternal conditions; N83.8 Other noninflammatory disorders of ovary, fallopian tube and broad ligament
CPT/HCPCS: 36415; 85025; 88307-TC; 94760

== ENCOUNTER 2024-02-13 18:10 | Emergency (ER) | payer OTHER ==
[2024-02-13 19:33] VITALS: BP 132/69; PULSE 83; RESP 18; TEMP 98.1; BMI 29.9
[2024-02-13 19:45] LABS: INR 0.97 (0.83-1.09); PROTHROMBIN TIME (PATIENT) 11.1 SEC (9.7-13.0)
[2024-02-13 19:48] LABS: ACTIVATED PTT 31.5 SECONDS (25.2-36.5)
[2024-02-13 19:51] LABS: HEMOGLOBIN 13.4 G/dL (10.7-15.3); MCH 27.7 pg (25.7-33.7); MEAN CELL VOLUME 86.6 fl (80-96); MEAN PLT VOLUME 9.8 fl (7.5-11.1); PLATELET COUNT 241.2 10^3/uL (134-434); RBC 4.85 10^6/uL (3.60-5.2); WHITE BLOOD COUNT 6.5 10^3/uL (4.0-10.8)
[2024-02-13 20:01] LABS: ALBUMIN 4.6 g/dl (3.4-5.0); ALK PHOS 55 U/L (45-117); ANION GAP 11 mmol/L (4-13); BILIRUBIN,TOTAL 0.7 mg/dl (0.2-1); CALCIUM 9.6 mg/dl (8.5-10.1); CHLORIDE 108 mmol/L (98-107); CO2 24 mmol/L (21-32); CREATININE 0.9 mg/dl (0.6-1.3); GLUCOSE,RANDOM 104 mg/dl (74-106); POTASSIUM 3.8 mmol/L (3.5-5.1); SGOT/AST 19 U/L (15-37); SGPT/ALT 24 U/L (7-52); SODIUM 143 mmol/L (136-145); TOT PROT 7.2 g/dl (6.4-8.2)
[2024-02-13 21:03] LABS: N-TERMINAL BNP 59.2 pg/ml (5-125)
== END 2024-02-13 21:09 | disposition home or self-care (01) ==
LOC: FER 18:10
DX: S86.112A Strain of other muscle(s) and tendon(s) of posterior muscle group at lower leg level, left leg, initial encounter (principal); X58.XXXA Exposure to other specified factors, initial encounter
CPT/HCPCS: 36415; 80053; 83880; 84484; 84703; 85027; 85379; 85610; 85730; 93005; 93971-TC; 99285-25

== ENCOUNTER 2024-02-17 11:03 | Emergency (ER) | payer OTHER ==
[2024-02-17] MEDS ORDERED: ACETAMINOPHEN 500 MG TABLET (FP) ONE (12:33)
[2024-02-17] MEDS: ACETAMINOPHEN 500 MG TABLET (FP) PO ONE (12:35)
[2024-02-17] MEDS ORDERED: oxyCODONE HCL 5 MG TABLET ONE (12:38)
[2024-02-17] MEDS ORDERED: diazePAM 2 MG TABLET ONE (12:38)
[2024-02-17] MEDS ORDERED: IBUPROFEN 600 MG TABLET (FP) PO ONE (12:38)
[2024-02-17] MEDS: diazePAM 2 MG TABLET PO ONE (12:42)
[2024-02-17] MEDS: IBUPROFEN 600 MG TABLET (FP) PO ONE (12:42)
[2024-02-17] MEDS: oxyCODONE HCL 5 MG TABLET PO ONE (12:42)
[2024-02-17 15:19] VITALS: BP 120/82; PULSE 106; RESP 16; TEMP 98.2; BMI 29.9
== END 2024-02-17 16:28 | disposition home or self-care (01) ==
LOC: JER 11:03
DX: M79.662 Pain in left lower leg (principal); I82.432 Acute embolism and thrombosis of left popliteal vein
CPT/HCPCS: 93970-TC; 99284-25

== ENCOUNTER 2024-02-19 11:35 | Observation (INO) | payer OTHER ==
[2024-02-19 11:47] VITALS: BMI 29.7
[2024-02-19] MEDS: SODIUM CHLORIDE 1,000 ML IV STA (12:30)
[2024-02-19 13:00] LABS: EOS % 3.5 % (0-4.5); HEMATOCRIT 38.7 % (32.4-45.2); HEMOGLOBIN 12.8 GM/dL (10.7-15.3); LYMPH % 25.5 % (8-40); MEAN CELL VOLUME 84.7 fl (80-96); MEAN PLT VOLUME 9.1 fl (7.5-11.1); MONO % 5.9 % (3.8-10.2); NEUT % 64.1 % (42.8-82.8); PLATELET COUNT 234 10^3/uL (134-434); RBC 4.56 M/mm3 (3.60-5.2); RDW 15.1 % (11.6-15.6); WHITE BLOOD COUNT 7.2 K/mm3 (4.0-10.0)
[2024-02-19 13:06] LABS: INR 1.66 (0.83-1.09); PROTHROMBIN TIME (PATIENT) 18.5 SEC (9.7-13.0)
[2024-02-19 13:08] LABS: ACTIVATED PTT 35.7 SECONDS (25.2-36.5)
[2024-02-19 13:18] LABS: CHLORIDE 106 mmol/L (98-107); SODIUM 138 mmol/L (136-145)
[2024-02-19 13:21] LABS: ALBUMIN 3.5 g/dl (3.4-5.0); BLOOD UREA NITROGEN 12.5 mg/dL (7-18); CALCIUM 9.2 mg/dL (8.5-10.1); CO2 26 mmol/L (21-32); GLUCOSE,RANDOM 83 mg/dL (74-106); MAGNESIUM 2.3 mg/dL (1.8-2.4)
[2024-02-19 13:24] LABS: ANION GAP 5 mmol/L (4-13); POTASSIUM 6.4 mmol/L (3.5-5.1); SGOT/AST 31 U/L (15-37); SGPT/ALT 18 U/L (13-61)
[2024-02-19 13:25] LABS: CREATININE 0.9 mg/dL (0.55-1.3); TOT PROT 7.4 g/dl (6.4-8.2)
[2024-02-19 13:27] LABS: ALK PHOS 59 U/L (45-117)
[2024-02-19] MEDS ORDERED: ENOXAPARIN NA (PORCINE) 30 MG/0.3 ML DISP.SYRIN SQ ONE (16:59)
[2024-02-19] MEDS ORDERED: ENOXAPARIN NA (PORCINE) 60 MG/0.6 ML DISP.SYRIN SQ ONE (16:59)
[2024-02-19 17:08] LABS: POTASSIUM 4.3 mmol/L (3.5-5.1)
[2024-02-19 17:09] LABS: CALCIUM 9.1 mg/dL (8.5-10.1)
[2024-02-19 17:10] LABS: BLOOD UREA NITROGEN 10.8 mg/dL (7-18)
[2024-02-19] MEDS: ENOXAPARIN NA (PORCINE) 80 MG/0.8 ML DISP.SYRIN SQ ONE (17:10)
[2024-02-19 17:13] LABS: CREATININE 0.7 mg/dL (0.55-1.3)
[2024-02-19] MEDS: oxyCODONE HCL 5 MG TABLET PO PRN (22:19)
[2024-02-20] MEDS: ENOXAPARIN NA (PORCINE) 100 MG/1 ML DISP.SYRIN SQ SCH (05:23)
[2024-02-20 08:41] LABS: BASO % 0.9 % (0-2.0); HEMOGLOBIN 11.8 GM/dL (10.7-15.3); LYMPH % 36.5 % (8-40); MCH 28.7 pg (25.7-33.7); MCHC 33.8 g/dl (32.0-36.0); MEAN PLT VOLUME 9.5 fl (7.5-11.1); MONO % 8.5 % (3.8-10.2); NEUT % 49.1 % (42.8-82.8); PLATELET COUNT 223 10^3/uL (134-434); RBC 4.12 M/mm3 (3.60-5.2); RDW 14.9 % (11.6-15.6); WHITE BLOOD COUNT 5.8 K/mm3 (4.0-10.0)
[2024-02-20 09:04] LABS: POTASSIUM 4.2 mmol/L (3.5-5.1)
[2024-02-20 09:15] LABS: ALBUMIN 3.2 g/dl (3.4-5.0); BLOOD UREA NITROGEN 13.1 mg/dL (7-18); MAGNESIUM 2.1 mg/dL (1.8-2.4)
[2024-02-20 09:17] LABS: CREATININE 0.7 mg/dL (0.55-1.3)
[2024-02-20 09:19] LABS: BILIRUBIN,TOTAL 0.6 mg/dL (0.2-1); PHOSPHOROUS 4.2 mg/dL (2.5-4.9)
[2024-02-20] MEDS: oxyCODONE HCL 5 MG TABLET PO PRN (11:32)
[2024-02-20] MEDS: ACETAMINOPHEN 325 MG TABLET (FP) PO PRN (11:33)
[2024-02-21 06:45] LABS: EOS % 6.2 % (0-4.5); HEMATOCRIT 35.2 % (32.4-45.2); HEMOGLOBIN 11.7 GM/dL (10.7-15.3); LYMPH % 47.3 % (8-40); MCH 28.4 pg (25.7-33.7); MCHC 33.2 g/dl (32.0-36.0); MEAN CELL VOLUME 85.6 fl (80-96); MEAN PLT VOLUME 9.3 fl (7.5-11.1); MONO % 6.8 % (3.8-10.2); NEUT % 38.7 % (42.8-82.8); PLATELET COUNT 242 10^3/uL (134-434); RBC 4.11 M/mm3 (3.60-5.2); RDW 14.3 % (11.6-15.6); WHITE BLOOD COUNT 4.9 K/mm3 (4.0-10.0)
[2024-02-21 07:20] LABS: ALBUMIN 3.1 g/dl (3.4-5.0); BILIRUBIN,TOTAL 0.5 mg/dL (0.2-1); BLOOD UREA NITROGEN 13.5 mg/dL (7-18); CREATININE 0.8 mg/dL (0.55-1.3); TOT PROT 6.2 g/dl (6.4-8.2)
[2024-02-21 14:13] VITALS: RESP 18
[2024-02-21 16:16] LABS: BASO % 1.2 % (0-2.0); EOS % 3.9 % (0-4.5); HEMATOCRIT 38.2 % (32.4-45.2); HEMOGLOBIN 12.4 GM/dL (10.7-15.3); LYMPH % 36.3 % (8-40); MCH 28.1 pg (25.7-33.7); MCHC 32.5 g/dl (32.0-36.0); MEAN CELL VOLUME 86.6 fl (80-96); MEAN PLT VOLUME 9.9 fl (7.5-11.1); MONO % 4.3 % (3.8-10.2); NEUT % 54.3 % (42.8-82.8); PLATELET COUNT 264 10^3/uL (134-434); RBC 4.41 M/mm3 (3.60-5.2); RDW 14.7 % (11.6-15.6); WHITE BLOOD COUNT 5.8 K/mm3 (4.0-10.0)
[2024-02-22 03:04] VITALS: TEMP 98
[2024-02-22 06:40] VITALS: BP 119/69; PULSE 68
[2024-02-22 07:49] LABS: BASO % 1.1 % (0-2.0); EOS % 6.4 % (0-4.5); HEMATOCRIT 33.7 % (32.4-45.2); HEMOGLOBIN 11.4 GM/dL (10.7-15.3); LYMPH % 41.1 % (8-40); MCH 28.4 pg (25.7-33.7); MCHC 33.9 g/dl (32.0-36.0); MEAN CELL VOLUME 83.8 fl (80-96); MEAN PLT VOLUME 9.3 fl (7.5-11.1); MONO % 7.7 % (3.8-10.2); NEUT % 43.7 % (42.8-82.8); PLATELET COUNT 249 10^3/uL (134-434); RBC 4.02 M/mm3 (3.60-5.2); RDW 14.4 % (11.6-15.6); WHITE BLOOD COUNT 4.4 K/mm3 (4.0-10.0)
[2024-02-22 08:03] LABS: POTASSIUM 4.1 mmol/L (3.5-5.1)
[2024-02-22 08:10] LABS: CALCIUM 8.8 mg/dL (8.5-10.1)
[2024-02-22 08:11] LABS: ALBUMIN 3.1 g/dl (3.4-5.0); BLOOD UREA NITROGEN 13.5 mg/dL (7-18); MAGNESIUM 2.1 mg/dL (1.8-2.4)
[2024-02-22 08:13] LABS: BILIRUBIN,TOTAL 0.3 mg/dL (0.2-1); TOT PROT 6.2 g/dl (6.4-8.2)
[2024-02-22 08:14] LABS: CREATININE 0.8 mg/dL (0.55-1.3); PHOSPHOROUS 4.2 mg/dL (2.5-4.9)
[2024-02-25 13:08] LABS: DRVVT - 31.2 sec (0.0-47.0)
== END 2024-02-22 12:18 | disposition home or self-care (01) ==
LOC: JER 11:35 → JERBED 16:14 → INTOOBSV 16:14 → J4W 18:00
PROVIDERS: ADMIT Internal Medicine; ATTEND Internal Medicine
PROC: 3E033NZ Introduction of Analgesics, Hypnotics, Sedatives into Peripheral Vein, Percutaneous Approach (ICD-10-PCS; principal; 2024-02-19)
PROC: 3E0337Z Introduction of Electrolytic and Water Balance Substance into Peripheral Vein, Percutaneous Approach (ICD-10-PCS; 2024-02-19)
PROC: 3E023GC Introduction of Other Therapeutic Substance into Muscle, Percutaneous Approach (ICD-10-PCS; 2024-02-19)
DX: I26.99 Other pulmonary embolism without acute cor pulmonale (principal); R06.02 Shortness of breath; Z86.718 Personal history of other venous thrombosis and embolism; Z79.01 Long term (current) use of anticoagulants; N92.0 Excessive and frequent menstruation with regular cycle; Z90.710 Acquired absence of both cervix and uterus; Z87.891 Personal history of nicotine dependence
CPT/HCPCS: 36415; 71045-TC-FY; 71275-TC; 80048; 80053; 82550; 83735; 84100; 84484; 85025; 85130; 85379; 85610; 85613; 85730; 85732; 86850; 86900; 86901; 93005; 93010; 93306-TC; 93971-TC; 94010; 99285-25; G0378; Q9967

== ENCOUNTER 2024-11-07 17:39 | Emergency (ER) | payer OTHER ==
[2024-11-07 18:06] VITALS: BP 123/76; PULSE 78; RESP 18; TEMP 97.4; BMI 33.0
[2024-11-07 20:30] LABS: ABSOLUTE IMMATURE GRANULOCYTES 0.02 x10^3/uL (0.0-0.031); BASOPHILS # 0.06 x10^3/uL (0.01-0.08); EOSINOPHIL % 3.3 % (0.7-5.8); HEMATOCRIT 38.1 % (34.1-44.9); HEMOGLOBIN 12.1 g/dL (11.2-15.7); MCHC 31.8 g/dl (32.2-35.5); MEAN PLT VOLUME 10.6 fl (9.4-12.3); MONOCYTE # 0.34 x10^3/uL (0.24-0.86); MONOCYTE % 5.7 % (4.7-12.5); PLATELET COUNT 217 x10^3/uL (182-369); RDW 14.6 % (12.1-16.8)
[2024-11-07 20:43] LABS: INR 0.97 (0.83-1.09); PROTHROMBIN TIME (PATIENT) 10.6 SEC (9.7-13.0)
[2024-11-07 20:46] LABS: ACTIVATED PTT 25.2 SECONDS (25.2-36.5)
[2024-11-07 20:47] LABS: POTASSIUM 3.5 mmol/L (3.5-5.1)
[2024-11-07 20:51] LABS: ALBUMIN 3.4 g/dl (3.4-5.0); BLOOD UREA NITROGEN 10.3 mg/dL (7-18); CALCIUM 9.4 mg/dL (8.5-10.1)
[2024-11-07 20:54] LABS: CREATININE 0.7 mg/dL (0.55-1.3)
[2024-11-07 20:57] LABS: BILIRUBIN,TOTAL 0.5 mg/dL (0.2-1); TOT PROT 6.4 g/dl (6.4-8.2)
[2024-11-07 21:43] LABS: HCV DIAGNOSTIC IN-HOUSE W/RFLX NON-REACTIVE (NONREACTIVE)
[2024-11-07 21:45] LABS: HIV INTERPRETATION NEGATIVE (NEGATIVE)
== END 2024-11-07 21:38 | disposition home or self-care (01) ==
LOC: JER 17:39
DX: M79.662 Pain in left lower leg (principal); M79.675 Pain in left toe(s); W10.8XXA Fall (on) (from) other stairs and steps, initial encounter
CPT/HCPCS: 36415; 80053; 85025; 85610; 85730; 86803; 87389; 93971-TC; 99284-25